=== PATIENT | female | born 1960 | race Caucasian/White ===

== ENCOUNTER 2017-03-31 07:52 | Day surgery (SDC) | payer BC ==
[~2017-03-31 07:52] MED LIST: Lactated Ringers 1,000 ML IV SCH; Lidocaine 2% 5 ML SDV ONE; Midazolam 1 MG/ML 2 ML SDV ONE; Propofol 200 MG/20 ML SDV ONE; fentaNYL 100 MCG/2 ML SDV ONE
--- NOTE | 2017-03-31 08:40 | PCM.PREANE ---
Preanesthetic Assessment - Anesthesia/Transfusion/Family Hx Anesthesia History: Prior Anesthesia Without Reaction Family History of Anesthesia Reaction: No Transfusion History: No Prior Transfusion(s) Intubation History: Unknown - Review of Systems General: No Symptoms Pulmonary: No Symptoms Cardiovascular: No Symptoms Gastrointestinal: Difficulty Swallowing Neurological: No Symptoms Other: Reports: None - Physical Assessment O2 Sat by Pulse Oximetry: 98 Respiratory Rate: 16 Vital Signs: Last Vital Signs Temp 36.1 C 03/31/17 08:24 Pulse 80 03/31/17 08:24 Resp 16 03/31/17 08:24 BP 111/65 03/31/17 08:24 Pulse Ox 98 03/31/17 08:24 Height: 1.65 m Weight: 131.542 kg ASA Class: 3 Mental Status: Alert & Oriented x3 Airway Class: Mallampati = 3 Dentition: Reports: Normal Dentition Thyro-Mental Finger Breadths: 3 Mouth Opening Finger Breadths: 3 ROM/Head Extension: Full Lungs: Clear to Auscultation, Normal Respiratory Effort Cardiovascular: Regular Rate, Regular Rhythm - Allergies Allergies/Adverse Reactions: Allergies Allergy/AdvReac Type Severity Reaction Status Date / Time banana Allergy Nausea Verified 03/26/17 15:36 coconut Allergy Nausea Verified 03/26/17 15:36 latex Allergy Blisters Verified 03/26/17 15:36 oats Allergy Nausea Verified 04/10/15 09:37 bandaids Allergy Blisters Uncoded 03/26/17 15:36 - Blood Blood Available: No - Anesthesia Plan Pre-Op Medication Ordered: None - Acknowledgements Anesthesia Type Planned: MAC Pt an Appropriate Candidate for the Planned Anesthesia: Yes Alternatives and Risks of Anesthesia Discussed w Pt/Guardian: Yes Pt/Guardian Understands and Agrees with Anesthesia Plan: Yes PreAnesthesia Questionnaire Cardiovascular History: Reports: High Cholesterol Respiratory History: Reports: Asthma (proair inhaler prn), Sleep Apnea Other Respiratory History: uses CPAP Gastrointestinal History: Reports: GERD (dysphagia) Genitourinary History: Reports: None Other Musculoskeletal History: sjogren's disease Endocrine/Metabolic History: Reports: Obesity/BMI 30+ Hematologic History: Reports: Other (See Below) (h/o anemia) Other Immunologic History: hx sjogrens disease ( main symptom is muscle weaknes) - Past Surgical History Head Surgeries/Procedures: Reports: None GI Surgical History: Reports: Colonoscopy (one year ago) Female Surgical History: Reports: Breast Biopsy, D&C, Dilitation & Evacuation , Tubal Ligation Other Female Surgeries/Procedures: hx laparoscopy x3, hysteroscopy, D&C, - SUBSTANCE USE Smoking Status *Q: Never Smoker Recreational Drug Use History: No - HOME MEDS Home Medications: Home Meds Albuterol [Proair HFA] 2 puff INH Q4HR PRN 04/10/15 [History] Omeprazole Magnesium [Prilosec Otc] 20 mg PO DAILY 04/10/15 [History] Aspirin/Acetaminophen/Caffeine [Migraine Formula Caplet] 1 tab PO ASDIRECTED PRN 03/26/17 [History] - CURRENT (IN HOUSE) MEDS Current Meds: Current Medications Lactated Ringer's (Ringers, Lactated) 1,000 mls @ 125 mls/hr IV ASDIRECTED MARCOS Last Admin: 03/31/17 08:09 Dose: 125 mls/hr Discontinued Medications Fentanyl (Sublimaze) Confirm Administered Dose 100 mcg .ROUTE .STK-MED ONE Stop: 03/31/17 07:30 Lidocaine (Xylocaine-Mpf 2%) Confirm Administered Dose 5 ml .ROUTE .STK-MED ONE Stop: 03/31/17 07:30 Midazolam HCl (Versed 1 Mg/Ml) Confirm Administered Dose 2 mg .ROUTE .STK-MED ONE Stop: 03/31/17 07:30 Propofol (Diprivan 20 Ml) Confirm Administered Dose 400 mg .ROUTE .STK-MED ONE Stop: 03/31/17 07:30
--- NOTE | 2017-03-31 09:46 | PCM.OPNOTE ---
- General Post-Op/Procedure Note Date of Surgery/Procedure: 03/31/17 Operative Procedure(s): egd w bx Findings: see dict [id number] Pre Op Diagnosis: dysphagia Post-Op Diagnosis: gerd and hiatal hernia Anesthesia Technique: Moderate Sedation Primary Surgeon: Logan Cyr Pathology: egd bx Complications: None Condition: Good
[2017-03-31 10:12] VITALS: BP 114/62
--- NOTE | 2017-03-31 11:20 | OR ---
SURGEON: Logan Cyr MD DATE OF PROCEDURE: 03/31/2017 PREOPERATIVE DIAGNOSIS: Dysphagia. POSTOPERATIVE DIAGNOSIS: Acid reflux. PROCEDURE PERFORMED: Esophagogastroduodenoscopy with biopsy. DESCRIPTION OF PROCEDURE: EGD: The patient was taken to the endoscopy room, and with the CLINICAL ENGINEERING DIRECTOR, Diprivan was administered. A well-lubricated EGD scope was gently inserted through the oropharynx, down the esophagus, passing through the gastroesophageal junction, into the stomach. The mucosa was examined upon the passage. Any etiology will be noted. Once in the stomach, we continued to advance to the distal antrum, passed through the pylorus into the second portion of the duodenum. Again, the mucosa was examined for any abnormality and etiology. The scope was then retrieved back to the stomach and then retroflexed to look at the fundus of the stomach. If a biopsy was indicated, we will biopsy the antrum, body, and gastroesophageal junction. The air will be sucked out while the scope is retrieved to reduce the patient's discomfort. The patient tolerated the procedure well. There were no intraoperative complications. Dr. Cyr was present through the whole procedure. Prior to surgery, a time-out had been called, the patient identified, procedure identified and antibiotic administered. FINDINGS: 1. The patient is easily sedated with CLINICAL ENGINEERING DIRECTOR and Diprivan. The patient is soundly snoring. 2. Oropharynx and proximal esophagus are free of disease. Esophagus has no stricture, inflammation, or diverticulum observed. Distal esophagus at GE junction at 40 shows salmon color change consistent with acid reflux. Stomach rugae is normal in appearance. There is no bile, food, blood, or ulcer observed. Antrum is mildly inflamed. Duodenum is grossly normal in appearance. The scope was retrieved, retroflexed to look at the fundus of the stomach, and the patient has a mild hiatal hernia. Biopsy was done at antrum, body, GE junction at 40, and sucked out the air while scope pulling out. MARGY / NAVEEN /[id number]
== END 2017-03-31 10:34 | disposition home or self-care (01) ==
LOC: MW.SDS 07:52
PROVIDERS: ATTEND Surgery
DX: K29.50 Unspecified chronic gastritis without bleeding (principal); K21.0 Gastro-esophageal reflux disease with esophagitis; Z91.040 Latex allergy status; Z91.018 Allergy to other foods
CPT/HCPCS: 43239; J2250; J3010; J7120; 00740; 88305; 88312; J2704